=== PATIENT | female | born 1950 | race Caucasian/White ===

== ENCOUNTER → 2022-01-28 | Outpatient (CLI) | payer MEDICARE, OTHER | LOC: WOUNDCARE 09:26 | PROVIDERS: ATTEND Family Medicine | DX: L89.893 Pressure ulcer of other site, stage 3 (principal); E66.01 Morbid (severe) obesity due to excess calories; Z74.09 Other reduced mobility | CPT/HCPCS: 11042; A6197; A6212; G0463 ==

== ENCOUNTER → 2022-02-01 | Outpatient (CLI) | payer MEDICARE, OTHER | LOC: WOUNDCARE 13:37 | PROVIDERS: ATTEND Family Medicine | DX: I96 Gangrene, not elsewhere classified (principal); L89.893 Pressure ulcer of other site, stage 3; E87.6 Hypokalemia; E66.01 Morbid (severe) obesity due to excess calories; Z74.09 Other reduced mobility | CPT/HCPCS: 11042; A6212; G0463 ==

== ENCOUNTER → 2022-02-08 | Outpatient (CLI) | payer MEDICARE, OTHER | LOC: WOUNDCARE 11:04 | PROVIDERS: ATTEND Family Medicine | DX: L89.893 Pressure ulcer of other site, stage 3 (principal); E66.01 Morbid (severe) obesity due to excess calories; E87.6 Hypokalemia; Z74.09 Other reduced mobility | CPT/HCPCS: A6212; G0463 ==